=== PATIENT | female | born 1965 | race Caucasian/White ===

== ENCOUNTER → 2018-03-15 08:16 | Outpatient (CLI) | payer BC, SELFPAY ==
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
== END ==
PROVIDERS: Family Provider Family Medicine; PCP Family Medicine; Visit Provider Podiatrist
DX: M84.376A Stress fracture, unspecified foot, initial encounter for fracture (principal)
CPT/HCPCS: 78315; A9503

== ENCOUNTER → 2018-04-19 13:56 | Outpatient (CLI) | payer BC, SELFPAY ==
[2018-04-19 14:59] LABS: Add Manual Diff / Slide Review NO; Basophils Percent Auto 0.5 % (0-2); Eosinophils Percent Auto 1.6 % (2-4); Hematocrit 37.4 % (36-46); Hemoglobin 12.9 g/dL (12.0-16.0); Lymphocytes Percent Auto 30.2 % (25-40); Mean Corpuscular HGB Conc 34.5 % (30-36); Mean Corpuscular Hemoglobin 31.5 PG (26-34); Mean Corpuscular Volume 91.3 fL (80-100); Monocytes Percent Auto 6.7 % (3-14); Neutrophils Absolute Auto 3200 /uL (3000-5900); Platelet Count 276 X10^3/uL (150-400); Red Cell Distribution Width 13.5 % (11.6-14.8); White Blood Cell Count 5.3 X10^3/uL (4.5-11.0)
[2018-04-19 15:24] LABS: Free T4, Direct Thyroxine 0.76 ng/dL (0.78-2.19)
[2018-04-19 15:38] LABS: Thyroid Stimulating Hormone 1.42 uIU/mL (0.47-4.68)
[2018-04-23 14:18] LABS: Dehydroepiandrosterone Sulfate 47 mcg/dL (8-188)
[2018-04-23 15:01] LABS: Progesterone < 0.5 ng/mL
[2018-04-23 15:08] LABS: Estradiol 55 pg/mL
== END ==
PROVIDERS: PCP Family Medicine; Visit Provider Obstetrics & Gynecology
DX: E07.9 Disorder of thyroid, unspecified (principal); E03.9 Hypothyroidism, unspecified
CPT/HCPCS: 36415; 82627; 82670; 84144; 84439; 84443; 85025

== ENCOUNTER 2018-05-04 19:53 | Emergency (ER) | payer BC, SELFPAY ==
[2018-05-04 20:10] VITALS: BP 119/69; PULSE 77; RESP 16; TEMP 36.9; O2SAT 100
--- NOTE | 2018-05-04 20:21 | DI.RAD.S_ITS ---
PROCEDURE: XR ANKLE RT MIN 3V INDICATIONS: right ankle injury TECHNIQUE: 3 views of the ankle were acquired. COMPARISON: [facility] [place], CR, XR FOOT 3+ VIEWS BILATERAL, 03/07/2018, 8:44. FINDINGS: Bones: No fractures or dislocations. Ankle mortise is normally aligned. No suspicious bony lesions. There is calcaneal spurs. Soft tissues: No tibiotalar joint effusion. Achilles tendon appears normal. IMPRESSION: No fracture or dislocation. Dictated by: Devante Angel M.D. on 05/04/2018 at 21:03 Approved by: Devante Angel M.D. on 05/04/2018 at 21:04
--- NOTE | 2018-05-04 21:06 | ED.LOWEXIN ---
HPI - Extremity Injury (Lower) <Nidia Randhawa PA-C - Last Filed: 05/04/18 22:40> General Chief Complaint: Extremity Injury, Lower Stated Complaint: TWISTED RT ANKLE Time Seen by Provider: 05/04/18 20:59 Source: patient Mode of arrival: ambulatory Limitations: no limitations History of Present Illness HPI Narrative: This 52 year old female was playing spike ball with a group when she planted the R. foot and heard a snap/pop type sound in her ankle as it rolled inward. She states that this has been painful since. She hasn't walked on it. She denies any other pain or injury. She did not fall. Related Data Home Medications Medication Instructions Recorded Confirmed thyroid (pork) [[place] Thyroid] 60 mg PO DAILY 05/04/18 05/04/18 Previous Rx's Medication Instructions Recorded estradiol 0.075 mg/24 hr 1 patch TRANSDERMAL 2XW #8 each 04/19/18 semiweekly transdermal patch Allergies Allergy/AdvReac Type Severity Reaction Status Date / Time hydrocodone [HYDROCODONE] Allergy Severe RESPIRATORY Verified 05/04/18 20:15 REACTION oxycodone [OXYCODONE] AdvReac Intermediate CHEST PAIN Verified 05/04/18 20:15 amoxicillin [AMOXICILLIN] AdvReac Mild GI Verified 05/04/18 20:15 INTOLERANCE dicyclomine [DICYCLOMINE] AdvReac Mild ANXIETY Verified 05/04/18 20:15 erythromycin base AdvReac Mild GI Verified 05/04/18 20:15 [ERYTHROMYCIN BASE] INTOLERANCE Penicillins [PENICILLINS] AdvReac Mild GI Verified 05/04/18 20:15 INTOLERANCE Review of Systems <Nidia Randhawa PA-C - Last Filed: 05/04/18 22:40> Review of Systems All systems reviewed & are unremarkable except as noted in HPI and below Exam <Nidia Randhawa PA-C - Last Filed: 05/04/18 22:40> Narrative Exam Narrative: GENERAL APPEARANCE: Patient sitting comfortably, in no distress. LUNGS: Clear to auscultation bilaterally. HEART: Rate and rhythm regular without murmur, normal S1 and S2, no S3 or S4. MS: R. foot and ankle no effusion. Mild TTP over the anteriorlateral and medial ankle. Full AROM but tender with inversion/medial deviation. No TTP over the MT, toes, or knee. NEUROVASCULAR: R. foot warm and pink, intact pedal pulses, sensation grossly intact Initial Vital Signs Initial Vital Signs: Vital Signs Temperature 98.5 F 05/04/18 20:10 Pulse Rate 77 05/04/18 20:10 Respiratory Rate 16 05/04/18 20:10 Blood Pressure 119/69 05/04/18 20:10 Pulse Oximetry 100 05/04/18 20:10 <DO Yasmin Langston Last Filed: 05/05/18 00:26> Initial Vital Signs Initial Vital Signs: Vital Signs Temperature 98.5 F 05/04/18 20:10 Pulse Rate 77 05/04/18 20:10 Respiratory Rate 16 05/04/18 20:10 Blood Pressure 119/69 05/04/18 20:10 Pulse Oximetry 100 05/04/18 20:10 Course <Nidia Randhawa PA-C - Last Filed: 05/04/18 22:40> Additional Information: Patient is able to ambulate more comfortably with gel splint. She will f/u with PCP to assess progress next week and return if worsening sx in the interim Orders Ordered: ED Orders 05/04/18 20:21 XR ankle RT min 3V Stat Discontinued Medications Ibuprofen (Advil) 800 mg PO NOW ONE Stop: 05/04/18 21:23 Last Admin: 05/04/18 21:55 Dose: 800 mg Vital Signs - 8 hr 05/04/18 20:10 05/04/18 22:16 Temperature 98.5 F 98.1 F Pulse Rate 77 71 Respiratory Rate 16 16 Blood Pressure 119/69 114/69 Pulse Oximetry 100 100 <DO Yasmin Langston Last Filed: 05/05/18 00:26> Orders Ordered: ED Orders 05/04/18 20:21 XR ankle RT min 3V Stat Discontinued Medications Ibuprofen (Advil) 800 mg PO NOW ONE Stop: 05/04/18 21:23 Last Admin: 05/04/18 21:55 Dose: 800 mg Vital Signs - 8 hr 05/04/18 20:10 05/04/18 22:16 Temperature 98.5 F 98.1 F Pulse Rate 77 71 Respiratory Rate 16 16 Blood Pressure 119/69 114/69 Pulse Oximetry 100 100 MDM - Extremity Injury (Lower) <SILKE Velarde Last Filed: 05/04/18 22:40> Imaging Data ankle: Radiologist's impression: BACK Ankle X-Ray (Signed) JeanneSidfrancy - 05/04/18 View Report History [address] [address] XRay Report Signed Patient: Rozina Snyder MR#: [id number] : 1965 Acct:[id number] Age/Sex: 52 / F Date of Service: 05/04/18 Loc: ED Accession Number: [id number] Procedure: XR ankle RT min 3V Ordering Provider: Nidia Randhawa P.A-C PROCEDURE: XR ANKLE RT MIN 3V INDICATIONS: right ankle injury TECHNIQUE: 3 views of the ankle were acquired. COMPARISON: [facility] [place], XR FOOT 3+ VIEWS BILATERAL, 03/07/2018, 8:44. FINDINGS: Bones: No fractures or dislocations. Ankle mortise is normally aligned. No suspicious bony lesions. There is calcaneal spurs. Soft tissues: No tibiotalar joint effusion. Achilles tendon appears normal. IMPRESSION: No fracture or dislocation. Dictated by: Devante Angel M.D. on 05/04/2018 at 21:03 Approved by: Devante Angel M.D. on 05/04/2018 at 21:04 Discharge Plan Departure Patient Disposition: Home Clinical Impression: Inversion sprain of right ankle Discharge Date/Time: 05/04/18 22:18 Interventions: ED Discharge Assessment Last Done: 05/04/18 22:16 Instructions: DI for Ankle Sprain Activity Restrictions/Additional Instructions: please continue ibuprofen every 8 hr. Use ice tonight, elevate the ankle, and rest. Gentle walking on flat ground is okay with the immobilizer splint that we gave you as you tolerated. You should return as we talked about if you have acutely worsening symptoms. Call your PCP office on Sunday morning to arrange a follow-up visit next week so this can be rechecked, as you might need further testing if not getting better. Prescriptions: No Action estradiol [[place]ivelle-Dot] 0.075 mg/24 hr patch semiweekly 1 patch Transdermal 2XW Qty: 8 RF: 5 thyroid (pork) [[place] Thyroid] 60 mg Tablet 60 mg PO DAILY RF: 0 Referrals: Maria L Barber DO [Primary Care Provider] - <Hero Alfonso DO - Last Filed: 05/05/18 00:26> Cosign ED Attending Kelsy Attestation: I was available for consultation during this patient's emergency department encounter
[2018-05-04] MEDS: IBUPROFEN 400 MG TABLET 800 MG PO (21:55)
[2018-05-04 22:16] VITALS: BP 114/69; PULSE 71; RESP 16; TEMP 36.7; O2SAT 100
== END 2018-05-04 22:18 | disposition home or self-care (01) ==
PROVIDERS: Emergency Provider Internal Medicine; Family Provider Family Medicine; PCP Family Medicine
DX: S93.401A Sprain of unspecified ligament of right ankle, initial encounter (principal); W18.43XA Slipping, tripping and stumbling without falling due to stepping from one level to another, initial encounter; Y93.69 Activity, other involving other sports and athletics played as a team or group
CPT/HCPCS: 29540; 73610; 99282; 99283

== ENCOUNTER → 2018-12-09 12:38 | Outpatient (CLI) | payer BC, SELFPAY ==
[2018-12-09 13:22] LABS: Add Manual Diff / Slide Review NO; Basophils Absolute Auto 0 /uL (0-100); Basophils Percent Auto 0.6 % (0-2); Eosinophils Absolute Auto 100 /uL (0-450); Eosinophils Percent Auto 2.1 % (2-4); Hematocrit 39.1 % (36-46); Hemoglobin 13.3 g/dL (12.0-16.0); Lymphocytes Absolute Auto 2000 /uL (1100-4500); Lymphocytes Percent Auto 33.1 % (25-40); Mean Corpuscular Hemoglobin 30.9 PG (26-34); Mean Corpuscular Volume 90.7 fL (80-100); Monocytes Absolute Auto 300 /uL (0-900); Monocytes Percent Auto 5.5 % (3-14); Neutrophils Absolute Auto 3600 /uL (1500-7000); Neutrophils Percent Auto 58.7 % (50-75); Platelet Count 273 X10^3/uL (150-400); Red Blood Cell Count 4.31 X10^6/uL (4.0-5.2); Red Cell Distribution Width 12.9 % (11.6-14.8); White Blood Cell Count 6.2 X10^3/uL (4.5-11.0)
[2018-12-09 14:04] LABS: Free T4, Direct Thyroxine 0.88 ng/dL (0.78-2.19)
[2018-12-09 14:34] LABS: Thyroid Stimulating Hormone 2.88 uIU/mL (0.47-4.68)
[2018-12-12 16:28] LABS: Dehydroepiandrosterone Sulfate 24 mcg/dL (8-188)
[2018-12-13 08:39] LABS: Progesterone < 0.5 ng/mL
[2018-12-13 14:37] LABS: Estradiol 33 pg/mL
== END ==
PROVIDERS: PCP Family Medicine; Visit Provider Obstetrics & Gynecology
DX: E07.9 Disorder of thyroid, unspecified (principal)
CPT/HCPCS: 36415; 82627; 82670; 84144; 84439; 84443; 85025

== ENCOUNTER → 2019-02-13 11:06 | Outpatient (CLI) | payer BC, SELFPAY | PROVIDERS: PCP Family Medicine; Visit Provider Family Medicine | DX: R30.0 Dysuria (principal); R31.9 Hematuria, unspecified | CPT/HCPCS: 87077; 87086; 87186 ==

== ENCOUNTER → 2019-04-18 10:35 | Outpatient (CLI) | payer BC, SELFPAY ==
[2019-04-18 10:41] LABS: Bacteria Urine None Seen; RBC Urine None Seen (0-5/HPF); WBC Urine None Seen (0-5/HPF)
[2019-04-18 11:38] LABS: Appearance Urine UA CLEAR; Bilirubin Urine UA NEGATIVE (NEGATIVE); Color Urine UA ORANGE; Ketones Urine UA NEGATIVE (NEGATIVE); Occult Blood Urine UA NEGATIVE (Negative)
[2019-04-18 11:53] LABS: Culture Indicated Urine Cult Not Indicated; Urine Comments Microscopic Normal
== END ==
PROVIDERS: PCP Family Medicine; Visit Provider Family Medicine
DX: R39.9 Unspecified symptoms and signs involving the genitourinary system (principal)
CPT/HCPCS: 81001

== ENCOUNTER → 2019-06-06 17:40 | Outpatient (CLI) | payer BC, SELFPAY ==
[2019-06-06 18:58] LABS: Free T4, Direct Thyroxine 0.79 ng/dL (0.78-2.19)
[2019-06-06 19:12] LABS: Thyroid Stimulating Hormone 6.18 uIU/mL (0.47-4.68)
== END ==
PROVIDERS: Family Provider Family Medicine; PCP Family Medicine; Visit Provider Obstetrics & Gynecology
DX: E03.9 Hypothyroidism, unspecified (principal)
CPT/HCPCS: 36415; 84439; 84443

== ENCOUNTER → 2019-09-04 12:06 | Outpatient (CLI) | payer OTHER, SELFPAY ==
--- NOTE | 2019-09-04 12:08 | DI.RAD.S_ITS ---
PROCEDURE: XR ELBOW RT MIN 3V INDICATIONS: right elbow pain, point tenderness over lateral epicondyl TECHNIQUE: 3 views of the elbow were acquired. COMPARISON: None. FINDINGS: Bones: No fractures or dislocations. No suspicious bony lesions. Soft tissues: No elbow joint effusion. No suspicious soft tissue calcifications. IMPRESSION: No fracture or dislocation. Dictated by: Devante Angel M.D. on 09/04/2019 at 16:57 Approved by: Devante Angel M.D. on 09/04/2019 at 16:58
== END ==
PROVIDERS: Family Provider Family Medicine; PCP Family Medicine; Visit Provider Family Medicine
DX: M25.521 Pain in right elbow (principal)
CPT/HCPCS: 73080

== ENCOUNTER → 2019-09-05 15:14 | Outpatient (CLI) | payer BC, SELFPAY ==
[2019-09-05 16:30] LABS: Free T4, Direct Thyroxine 0.97 ng/dL (0.78-2.19)
== END ==
PROVIDERS: PCP Family Medicine; Visit Provider Family Medicine
DX: E03.9 Hypothyroidism, unspecified (principal); E06.3 Autoimmune thyroiditis
CPT/HCPCS: 36415; 84439; 84443; 84481

== ENCOUNTER → 2019-09-25 12:18 | Outpatient (CLI) | payer OTHER, BC, SELFPAY ==
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
== END ==
PROVIDERS: PCP Family Medicine; Referring Provider Chiropractor; Visit Provider Chiropractor
DX: S13.4XXA Sprain of ligaments of cervical spine, initial encounter (principal); V49.9XXA Car occupant (driver) (passenger) injured in unspecified traffic accident, initial encounter
CPT/HCPCS: 72040

== ENCOUNTER → 2020-03-26 11:13 | Outpatient (CLI) | payer BC, SELFPAY ==
[2020-03-26 12:56] LABS: Progesterone, Total 0.45 ng/mL; Vitamin D 25 Hydroxy (D3) > 126 ng/mL (30.0-100.0)
[2020-03-26 13:08] LABS: Free T4, Direct Thyroxine 0.85 ng/dL (0.78-2.19)
[2020-03-26 13:21] LABS: Thyroid Stimulating Hormone 5.08 uIU/mL (0.47-4.68)
[2020-03-27 07:09] LABS: Dehydroepiandrosterone Sulfate 32.4 ug/dL (41.2-243.7)
[2020-03-31 16:08] LABS: Estrogen 205 pg/mL (.)
== END ==
PROVIDERS: PCP Family Medicine; Referring Provider Family Medicine; Visit Provider Family Medicine
DX: E55.9 Vitamin D deficiency, unspecified (principal); E03.9 Hypothyroidism, unspecified; N80.9 Endometriosis, unspecified; Z90.711 Acquired absence of uterus with remaining cervical stump
CPT/HCPCS: 36415; 82306; 82627; 82672; 84144; 84439; 84443; 84481

== ENCOUNTER → 2020-04-28 13:22 | Outpatient (CLI) | payer BC, SELFPAY ==
--- NOTE | 2020-04-28 | DI.RAD.S_ITS ---
PROCEDURE: XR FOOT LT 2V INDICATIONS: LT FOOT AP/LAT GOUT TECHNIQUE: Two views of the foot were acquired. COMPARISON: [facility], , FOOT 3V RIGHT, 03/20/2016, 10:46. FINDINGS: Bones: No fractures or dislocations. No suspicious bony lesions. Mild degenerative changes at the 1st MTP joint. No visible periarticular lucencies. Soft tissues: There is cloud like calcification in the soft tissues along the plantar aspect of the 1st metatarsal measuring roughly 1.4 cm in greatest diameter. No tibiotalar joint effusion. Achilles tendon appears normal. IMPRESSION: 1. Soft tissue calcification along the plantar aspect of the 1st metatarsal head may be related to crystalline deposition. 2. No visible bony erosions Dictated by: Letty Powers M.D. on 04/28/2020 at 18:39 Approved by: Letty Powers M.D. on 04/28/2020 at 18:42
== END ==
PROVIDERS: PCP Family Medicine; Referring Provider Family Medicine; Visit Provider Chiropractor
DX: M10.072 Idiopathic gout, left ankle and foot (principal)
CPT/HCPCS: 73620